=== PATIENT | female | born 1950 | race Caucasian/White ===

== ENCOUNTER 2019-02-02 14:24 | Inpatient (IN) ==
[2019-02-02 15:30] LABS: Basophils % 0.2 %; Eosinophils % 0.1 %; Hematocrit 44.6 % (35.3-44.9); Hemoglobin 14.3 g/dL (11.5-15.4); Immature Granulocytes % 0.5 % (0-4); Lymphocytes # 1.8 K/mcL (0.6-4.6); Lymphocytes % 13.4 %; Mean Corpuscular HGB Conc 32.1 g/dL (31.6-35.5); Mean Corpuscular Hemoglobin 27.6 pg (28.0-33.3); Mean Corpuscular Volume 86.1 fL (83.0-100.0); Mean Platelet Volume 10.7 fL (9.4-12.4); Monocytes # 0.7 K/mcL (0.0-1.3); Monocytes % 5.5 %; Neutrophils # 10.8 K/mcL (1.6-8.9); Platelet Count 339 K/mcL (140-400); Red Blood Count 5.18 M/mcL (3.82-4.97); Red Cell Distribution Width 13.9 % (11.5-14.5); Segmented Neutrophils % 80.3 %; White Blood Count 13.4 K/mcL (4.3-11.1)
[2019-02-02] MEDS ORDERED: 0.9 % Sodium Chloride 500 ML IVC ONE (15:43)
[2019-02-02] MEDS ORDERED: 0.9 % Sodium Chloride 500 ML IVC SCH (15:45)
[2019-02-02 15:52] LABS: BUN/Creatinine Ratio 14 (6-26); Blood Urea Nitrogen 12 mg/dL (8-23); Calcium 9.6 mg/dL (8.6-10.3); Carbon Dioxide 24 mEq/L (23-29); Chloride 102 mEq/L (98-107); Glucose 135 mg/dL (70-105); Osmolality,Calculated 282 (280-300); Potassium 3.5 mEq/L (3.5-5.1); Sodium 135 mEq/L (136-145); eGFR For African Americans > 60 (> 60); eGFR For Non-African Americans > 60 (> 60)
[2019-02-02 15:53] LABS: Troponin I < 0.03 ng/mL (< 0.04)
[2019-02-02] MEDS ORDERED: Naloxone 0.4 MG/ML INJ IVP PRN (16:37)
[2019-02-02] MEDS ORDERED: Ondansetron ODT 4 MG TAB.RAPDIS SL PRN (16:37)
[2019-02-02] MEDS ORDERED: Ondansetron 4 MG/2 ML VIAL IVP PRN (16:37)
[2019-02-02] MEDS ORDERED: Gadolinium Contrast Agent (WT Based) IV PRN (17:18)
[2019-02-02] MEDS ORDERED: Isovue-370 500 ML BOTTLE IVP ONE ×2 (17:25)
[2019-02-02] MEDS ORDERED: 0.9 % Sodium Chloride 1,000 ML IVC ONE (17:44)
[2019-02-02] MEDS ORDERED: Ringers Solution, Lactated 1,000 ML IVC SCH (18:00)
[2019-02-02 19:14] LABS: Thyroid Stimulating Hormone 1.28 mcIU/mL (0.340-5.600)
[2019-02-02 19:16] LABS: Triiodothyronine (T3) Free 2.33 pg/mL (2.50-3.90)
[2019-02-02] MEDS: Budesonide/Formoterol 160/4.5 1 PUFF INH IH SCH (21:58)
[2019-02-03 04:30] LABS: Basophils # 0.1 K/mcL (0.0-0.2); Basophils % 0.6 %; Eosinophils # 0.1 K/mcL (0.0-0.6); Eosinophils % 1.1 %; Hematocrit 39.6 % (35.3-44.9); Immature Granulocytes % 0.6 % (0-4); Lymphocytes # 2.9 K/mcL (0.6-4.6); Lymphocytes % 25.4 %; Mean Corpuscular HGB Conc 31.1 g/dL (31.6-35.5); Mean Corpuscular Hemoglobin 27.3 pg (28.0-33.3); Mean Platelet Volume 10.7 fL (9.4-12.4); Monocytes # 0.8 K/mcL (0.0-1.3); Monocytes % 7.4 %; Neutrophils # 7.4 K/mcL (1.6-8.9); Platelet Count 241 K/mcL (140-400); Red Cell Distribution Width 14.1 % (11.5-14.5); Segmented Neutrophils % 64.9 %; White Blood Count 11.4 K/mcL (4.3-11.1)
[2019-02-03 04:32] LABS: Hemoglobin 12.3 g/dL (11.5-15.4)
[2019-02-03 04:50] LABS: Alanine Aminotransferase 52 Units/L (7-52); Albumin 3.4 g/dL (3.5-5.7); Albumin/Globulin Ratio 1.4 (1.1-2.2); Alkaline Phosphatase 179 Units/L (34-104); Aspartate Amino Transferase 92 Units/L (13-39); BUN/Creatinine Ratio 13 (6-26); Bilirubin,Total 0.3 mg/dL (0.3-1.0); Blood Urea Nitrogen 11 mg/dL (8-23); Calcium 8.9 mg/dL (8.6-10.3); Carbon Dioxide 27 mEq/L (23-29); Chloride 103 mEq/L (98-107); Globulin 2.4 g/dL (2.4-3.5); Glucose 108 mg/dL (70-105); Magnesium 2.1 mg/dL (1.6-2.6); Osmolality,Calculated 290 (280-300); Phosphorous 2.6 mg/dL (2.7-4.5); Potassium 3.1 mEq/L (3.5-5.1); Sodium 140 mEq/L (136-145); Total Protein 5.8 g/dL (6.4-8.9); eGFR For African Americans > 60 (> 60); eGFR For Non-African Americans > 60 (> 60)
[2019-02-03] MEDS: Budesonide/Formoterol 160/4.5 1 PUFF INH IH SCH ×2 (07:33→19:32)
[2019-02-03] MEDS: Tiotropium 18 MCG inhalation IH SCH (07:36)
[2019-02-03] MEDS ORDERED: NON-FORMULARY MEDICATION 1 EACH EACH (Umeclidinium Bromide [Incruse Ellipta] 62.5 MCG) IH SCH (09:00)
[2019-02-03 09:11] LABS: INR 1.1; Prothrombin Time 12.9 Seconds (9.4-12.1)
[2019-02-03] MEDS ORDERED: *HR* LORazepam 2 MG/ML VIAL IVP ONE (09:52)
[2019-02-03] MEDS ORDERED: diazePAM 10 MG/2 ML SYRINGE IVP ONE (10:14)
[2019-02-03] MEDS: Metoprolol XL (24 HR) Succ 25 MG TAB.ER.24H PO SCH (10:28)
[2019-02-03] MEDS: *HR* Heparin 5,000 UNIT/ML VIAL SQ SCH ×2 (14:20→20:56)
[2019-02-03 17:08] LABS: Activated Partial Thrombo Time 27.9 Seconds (26.0-36.0)
[2019-02-04 05:03] LABS: Basophils # 0.1 K/mcL (0.0-0.2); Basophils % 0.8 %; Eosinophils # 0.2 K/mcL (0.0-0.6); Eosinophils % 1.8 %; Hematocrit 39.7 % (35.3-44.9); Hemoglobin 12.4 g/dL (11.5-15.4); Immature Granulocytes % 0.8 % (0-4); Lymphocytes # 2.1 K/mcL (0.6-4.6); Lymphocytes % 25.1 %; Mean Corpuscular HGB Conc 31.2 g/dL (31.6-35.5); Mean Corpuscular Hemoglobin 27.6 pg (28.0-33.3); Mean Corpuscular Volume 88.2 fL (83.0-100.0); Mean Platelet Volume 10.8 fL (9.4-12.4); Monocytes # 0.5 K/mcL (0.0-1.3); Monocytes % 6.2 %; Neutrophils # 5.5 K/mcL (1.6-8.9); Platelet Count 218 K/mcL (140-400); Red Cell Distribution Width 14.2 % (11.5-14.5); Segmented Neutrophils % 65.3 %; White Blood Count 8.4 K/mcL (4.3-11.1)
[2019-02-04 05:10] LABS: INR 1.1
[2019-02-04] MEDS ORDERED: *HR* Metoprolol 5 MG/5 ML VIAL IVP ONE (05:19)
[2019-02-04 05:20] LABS: BUN/Creatinine Ratio 11 (6-26); Blood Urea Nitrogen 7 mg/dL (8-23); Calcium 9.1 mg/dL (8.6-10.3); Carbon Dioxide 26 mEq/L (23-29); Chloride 103 mEq/L (98-107); Glucose 103 mg/dL (70-105); Osmolality,Calculated 288 (280-300); Potassium 3.8 mEq/L (3.5-5.1); Sodium 140 mEq/L (136-145); eGFR For African Americans > 60 (> 60); eGFR For Non-African Americans > 60 (> 60)
[2019-02-04] MEDS: *HR* Heparin 5,000 UNIT/ML VIAL SQ SCH ×3 (05:58→20:57)
[2019-02-04] MEDS ORDERED: *HR* FentaNYL (PF) 100 MCG/2 ML VIAL ONE (07:03)
[2019-02-04] MEDS ORDERED: *HR* Propofol 200 MG/20 ML VIAL IVP ONE (07:04)
[2019-02-04] MEDS ORDERED: Lidocaine -MPF 2% 2 ML VIAL ONE ×2 (07:04→07:08)
[2019-02-04] MEDS ORDERED: Ondansetron 4 MG/2 ML VIAL ONE (07:04)
[2019-02-04] MEDS ORDERED: Dexamethasone 4 MG/ML VIAL ONE ×2 (07:04→07:10)
[2019-02-04] MEDS ORDERED: *HR* Succinylcholine 200 MG/10 ML VIAL IVP ONE (07:04)
[2019-02-04] MEDS ORDERED: *HR* Midazolam HCl 2 MG/2 ML VIAL ONE (07:04)
[2019-02-04] MEDS ORDERED: *HR* Rocuronium Bromide 50 MG/5 ML VIAL ONE (07:04)
[2019-02-04] MEDS ORDERED: Lidocaine -MPF 4% 5 ML AMPUL ONE (07:05)
[2019-02-04] MEDS: Budesonide/Formoterol 160/4.5 1 PUFF INH IH SCH ×2 (07:43→19:48)
[2019-02-04] MEDS: Tiotropium 18 MCG inhalation IH SCH (07:43)
[2019-02-04] MEDS: Metoprolol XL (24 HR) Succ 25 MG TAB.ER.24H PO SCH (08:00)
[2019-02-04] MEDS ORDERED: *HR* PHENYLEPHRINE 1,000 MCG/10 ML SYRINGE IVP ONE ×2 (08:51→09:53)
[2019-02-04] MEDS ORDERED: Ipratropium/Albuterol Neb 3 ML IH ONE (11:02)
[2019-02-04] MEDS: Albuterol 2.5 MG/3 ML NEBULIZER IH SCH ×3 (13:54→16:01)
[2019-02-04 14:17] LABS: Appearance of Body Fluid Cloudy (Clear); Volume of Body Fluid 10 mL
[2019-02-04 16:48] LABS: Alanine Aminotransferase 110 Units/L (7-52); Albumin 3.5 g/dL (3.5-5.7); Albumin/Globulin Ratio 1.5 (1.1-2.2); Alkaline Phosphatase 200 Units/L (34-104); Aspartate Amino Transferase 204 Units/L (13-39); Bilirubin,Direct 0.1 mg/dL (0.0-0.2); Bilirubin,Indirect 0.3 mg/dL (0.0-1.2); Bilirubin,Total 0.4 mg/dL (0.3-1.0); Globulin 2.4 g/dL (2.4-3.5); Phosphorous 2.9 mg/dL (2.7-4.5); Total Protein 5.9 g/dL (6.4-8.9); Uric Acid 4.5 mg/dL (2.3-7.6)
[2019-02-04] MEDS: Dexamethasone 4 MG/ML VIAL IVP SCH (17:14)
[2019-02-04] MEDS: Albuterol 2.5 MG/3 ML NEBULIZER AER SCH ×2 (19:48→23:32)
[2019-02-05] MEDS: Dexamethasone 4 MG/ML VIAL IVP SCH ×4 (00:08→18:02)
[2019-02-05 02:07] LABS: Basophils % 0.2 %; Hematocrit 38.8 % (35.3-44.9); Immature Granulocytes % 0.8 % (0-4); Lymphocytes # 1.3 K/mcL (0.6-4.6); Lymphocytes % 12.9 %; Mean Corpuscular HGB Conc 30.9 g/dL (31.6-35.5); Mean Corpuscular Hemoglobin 27.8 pg (28.0-33.3); Mean Corpuscular Volume 89.8 fL (83.0-100.0); Mean Platelet Volume 10.9 fL (9.4-12.4); Monocytes # 0.5 K/mcL (0.0-1.3); Monocytes % 4.9 %; Neutrophils # 8.3 K/mcL (1.6-8.9); Platelet Count 232 K/mcL (140-400); Red Blood Count 4.32 M/mcL (3.82-4.97); Red Cell Distribution Width 14.3 % (11.5-14.5); Segmented Neutrophils % 81.2 %; White Blood Count 10.2 K/mcL (4.3-11.1)
[2019-02-05 02:12] LABS: INR 1.2; Prothrombin Time 13.2 Seconds (9.4-12.1)
[2019-02-05 02:25] LABS: Alanine Aminotransferase 108 Units/L (7-52); Albumin 3.4 g/dL (3.5-5.7); Albumin/Globulin Ratio 1.4 (1.1-2.2); Alkaline Phosphatase 197 Units/L (34-104); Aspartate Amino Transferase 144 Units/L (13-39); BUN/Creatinine Ratio 11 (6-26); Bilirubin,Total 0.4 mg/dL (0.3-1.0); Blood Urea Nitrogen 7 mg/dL (8-23); Calcium 9.2 mg/dL (8.6-10.3); Carbon Dioxide 25 mEq/L (23-29); Chloride 103 mEq/L (98-107); Globulin 2.5 g/dL (2.4-3.5); Glucose 123 mg/dL (70-105); Magnesium 1.9 mg/dL (1.6-2.6); Osmolality,Calculated 287 (280-300); Phosphorous 2.8 mg/dL (2.7-4.5); Potassium 3.7 mEq/L (3.5-5.1); Sodium 139 mEq/L (136-145); Total Protein 5.9 g/dL (6.4-8.9); Uric Acid 4.3 mg/dL (2.3-7.6); eGFR For African Americans > 60 (> 60); eGFR For Non-African Americans > 60 (> 60)
[2019-02-05] MEDS: Albuterol 2.5 MG/3 ML NEBULIZER AER SCH ×2 (03:32→07:41)
[2019-02-05] MEDS: *HR* Heparin 5,000 UNIT/ML VIAL SQ SCH ×3 (06:05→21:27)
[2019-02-05] MEDS: Budesonide/Formoterol 160/4.5 1 PUFF INH IH SCH ×2 (07:41→19:42)
[2019-02-05] MEDS: Tiotropium 18 MCG inhalation IH SCH (07:44)
[2019-02-05] MEDS: Metoprolol XL (24 HR) Succ 25 MG TAB.ER.24H PO SCH (08:26)
[2019-02-05] MEDS ORDERED: Pantoprazole 40 MG VIAL IVP SCH (09:00)
[2019-02-05] MEDS ORDERED: *HR* Metoprolol 5 MG/5 ML VIAL IVP ONE (09:05)
[2019-02-05] MEDS ORDERED: *HR* LORazepam 0.5 MG TABLET PO PRN (09:05)
[2019-02-05] MEDS ORDERED: Albuterol 2.5 MG/3 ML NEBULIZER IH PRN (09:41)
[2019-02-06] MEDS: Dexamethasone 4 MG/ML VIAL IVP SCH ×2 (06:13→18:33)
[2019-02-06] MEDS: *HR* Heparin 5,000 UNIT/ML VIAL SQ SCH ×3 (06:14→21:51)
[2019-02-06 06:42] LABS: Basophils % 0.2 %; Eosinophils % 0.1 %; Hematocrit 42.7 % (35.3-44.9); Hemoglobin 13.3 g/dL (11.5-15.4); Immature Granulocytes % 0.9 % (0-4); Lymphocytes # 3.5 K/mcL (0.6-4.6); Lymphocytes % 21.8 %; Mean Corpuscular HGB Conc 31.1 g/dL (31.6-35.5); Mean Corpuscular Hemoglobin 27.9 pg (28.0-33.3); Mean Corpuscular Volume 89.7 fL (83.0-100.0); Mean Platelet Volume 10.9 fL (9.4-12.4); Monocytes # 0.9 K/mcL (0.0-1.3); Monocytes % 5.8 %; Neutrophils # 11.3 K/mcL (1.6-8.9); Platelet Count 290 K/mcL (140-400); Red Blood Count 4.76 M/mcL (3.82-4.97); Red Cell Distribution Width 14.6 % (11.5-14.5); Segmented Neutrophils % 71.2 %; White Blood Count 15.9 K/mcL (4.3-11.1)
[2019-02-06 06:53] LABS: INR 1.2; Prothrombin Time 13.1 Seconds (9.4-12.1)
[2019-02-06 07:30] LABS: Alanine Aminotransferase 112 Units/L (7-52); Albumin 3.7 g/dL (3.5-5.7); Albumin/Globulin Ratio 1.4 (1.1-2.2); Alkaline Phosphatase 224 Units/L (34-104); Aspartate Amino Transferase 125 Units/L (13-39); BUN/Creatinine Ratio 15 (6-26); Bilirubin,Total 0.5 mg/dL (0.3-1.0); Blood Urea Nitrogen 10 mg/dL (8-23); Calcium 9.5 mg/dL (8.6-10.3); Carbon Dioxide 28 mEq/L (23-29); Chloride 100 mEq/L (98-107); Globulin 2.6 g/dL (2.4-3.5); Glucose 105 mg/dL (70-105); Magnesium 2.1 mg/dL (1.6-2.6); Osmolality,Calculated 287 (280-300); Phosphorous 2.3 mg/dL (2.7-4.5); Sodium 139 mEq/L (136-145); Total Protein 6.3 g/dL (6.4-8.9); Uric Acid 4.3 mg/dL (2.3-7.6); eGFR For African Americans > 60 (> 60); eGFR For Non-African Americans > 60 (> 60)
[2019-02-06] MEDS: Budesonide/Formoterol 160/4.5 1 PUFF INH IH SCH ×2 (07:30→20:05)
[2019-02-06] MEDS: Tiotropium 18 MCG inhalation IH SCH (07:32)
[2019-02-06] MEDS: Metoprolol XL (24 HR) Succ 25 MG TAB.ER.24H PO SCH (09:50)
[2019-02-06] MEDS: levoFLOXacin 750 MG/150 ML 750 MG/150 ML BAG IVPB SCH (14:30)
[2019-02-07] MEDS: *HR* Heparin 5,000 UNIT/ML VIAL SQ SCH ×3 (05:28→22:53)
[2019-02-07 05:32] LABS: Basophils % 0.3 %; Eosinophils % 0.1 %; Hematocrit 40.5 % (35.3-44.9); Hemoglobin 12.5 g/dL (11.5-15.4); Immature Granulocytes % 1.1 % (0-4); Lymphocytes # 2.6 K/mcL (0.6-4.6); Lymphocytes % 19.7 %; Mean Corpuscular HGB Conc 30.9 g/dL (31.6-35.5); Mean Corpuscular Hemoglobin 27.8 pg (28.0-33.3); Mean Corpuscular Volume 90.2 fL (83.0-100.0); Mean Platelet Volume 10.4 fL (9.4-12.4); Monocytes % 7.6 %; Neutrophils # 9.3 K/mcL (1.6-8.9); Platelet Count 236 K/mcL (140-400); Red Blood Count 4.49 M/mcL (3.82-4.97); Red Cell Distribution Width 14.8 % (11.5-14.5); Segmented Neutrophils % 71.2 %; White Blood Count 13.1 K/mcL (4.3-11.1)
[2019-02-07 05:45] LABS: INR 1.2; Prothrombin Time 13.3 Seconds (9.4-12.1)
[2019-02-07 05:59] LABS: Alanine Aminotransferase 101 Units/L (7-52); Albumin 3.5 g/dL (3.5-5.7); Albumin/Globulin Ratio 1.5 (1.1-2.2); Alkaline Phosphatase 210 Units/L (34-104); Aspartate Amino Transferase 104 Units/L (13-39); BUN/Creatinine Ratio 17 (6-26); Bilirubin,Total 0.5 mg/dL (0.3-1.0); Blood Urea Nitrogen 12 mg/dL (8-23); Calcium 9.2 mg/dL (8.6-10.3); Carbon Dioxide 29 mEq/L (23-29); Chloride 101 mEq/L (98-107); Globulin 2.4 g/dL (2.4-3.5); Glucose 107 mg/dL (70-105); Magnesium 2.2 mg/dL (1.6-2.6); Osmolality,Calculated 288 (280-300); Phosphorous 3.1 mg/dL (2.7-4.5); Potassium 4.4 mEq/L (3.5-5.1); Sodium 139 mEq/L (136-145); Total Protein 5.9 g/dL (6.4-8.9); Uric Acid 4.2 mg/dL (2.3-7.6); eGFR For African Americans > 60 (> 60); eGFR For Non-African Americans > 60 (> 60)
[2019-02-07] MEDS: Budesonide/Formoterol 160/4.5 1 PUFF INH IH SCH ×2 (07:52→22:18)
[2019-02-07] MEDS: Tiotropium 18 MCG inhalation IH SCH (07:55)
[2019-02-07] MEDS: Metoprolol XL (24 HR) Succ 25 MG TAB.ER.24H PO SCH (08:10)
[2019-02-07] MEDS: Dexamethasone 4 MG/ML VIAL IVP SCH (08:10)
[2019-02-07] MEDS: levoFLOXacin 750 MG/150 ML 750 MG/150 ML BAG IVPB SCH (08:11)
[2019-02-07] MEDS: Levalbuterol Neb 0.63 MG/3 ML IH SCH ×2 (15:35→22:19)
[2019-02-07] MEDS ORDERED: GuaiFENesin Liq 200 MG/10 ML UDC PO PRN (21:07)
[2019-02-08] MEDS ORDERED: *HR* LORazepam 2 MG/ML VIAL IVP PRN
[2019-02-08] MEDS ORDERED: Dexamethasone 10 MG/ML VIAL IVP PRN ×2
[2019-02-08] MEDS ORDERED: CARBOPLATIN IV SCH
[2019-02-08] MEDS ORDERED: SODIUM CHLORIDE 0.9% IV SCH ×2
[2019-02-08] MEDS ORDERED: EPINEPHrine 1 MG/ML VIAL SQ PRN
[2019-02-08] MEDS ORDERED: ETOPOSIDE IV SCH
[2019-02-08] MEDS ORDERED: 0.9 % Sodium Chloride 500 ML IVC SCH ×2
[2019-02-08] MEDS ORDERED: Dexamethasone 10 MG/ML VIAL IVP ONE
[2019-02-08] MEDS ORDERED: Famotidine 20 MG/2 ML VIAL IVP PRN
[2019-02-08] MEDS ORDERED: Hydrocortisone Sodium Succ 100 MG/2 ML VIAL IVP PRN
[2019-02-08] MEDS ORDERED: Fosaprepitant Dimeglumine 150 MG in 0.9 % Sodium Chloride 250 ML IVPB SCH
[2019-02-08] MEDS ORDERED: Prochlorperazine 10 MG/2 ML VIAL IVP PRN
[2019-02-08] MEDS ORDERED: Atezolizumab 1,200 MG in 0.9 % Sodium Chloride 250 ML IV SCH
[2019-02-08] MEDS: Levalbuterol Neb 0.63 MG/3 ML IH SCH ×4 (03:49→21:50)
[2019-02-08] MEDS: *HR* Heparin 5,000 UNIT/ML VIAL SQ SCH ×3 (05:31→23:06)
[2019-02-08 06:00] LABS: Basophils % 0.3 %; Eosinophils # 0.2 K/mcL (0.0-0.6); Eosinophils % 1.6 %; Hemoglobin 12.5 g/dL (11.5-15.4); Immature Granulocytes % 1.2 % (0-4); Lymphocytes # 3.1 K/mcL (0.6-4.6); Lymphocytes % 25.7 %; Mean Corpuscular HGB Conc 30.5 g/dL (31.6-35.5); Mean Corpuscular Hemoglobin 27.3 pg (28.0-33.3); Mean Corpuscular Volume 89.5 fL (83.0-100.0); Mean Platelet Volume 10.7 fL (9.4-12.4); Monocytes # 0.7 K/mcL (0.0-1.3); Monocytes % 5.8 %; Neutrophils # 7.9 K/mcL (1.6-8.9); Platelet Count 209 K/mcL (140-400); Red Blood Count 4.58 M/mcL (3.82-4.97); Red Cell Distribution Width 14.9 % (11.5-14.5); Segmented Neutrophils % 65.4 %; White Blood Count 12.1 K/mcL (4.3-11.1)
[2019-02-08 06:15] LABS: Prothrombin Time 11.8 Seconds (9.4-12.1)
[2019-02-08 06:20] LABS: Alanine Aminotransferase 104 Units/L (7-52); Albumin 3.5 g/dL (3.5-5.7); Albumin/Globulin Ratio 1.5 (1.1-2.2); Alkaline Phosphatase 222 Units/L (34-104); Aspartate Amino Transferase 125 Units/L (13-39); BUN/Creatinine Ratio 19 (6-26); Bilirubin,Total 0.5 mg/dL (0.3-1.0); Blood Urea Nitrogen 13 mg/dL (8-23); Calcium 9.2 mg/dL (8.6-10.3); Carbon Dioxide 28 mEq/L (23-29); Chloride 102 mEq/L (98-107); Globulin 2.4 g/dL (2.4-3.5); Glucose 100 mg/dL (70-105); Magnesium 2.2 mg/dL (1.6-2.6); Osmolality,Calculated 290 (280-300); Phosphorous 3.4 mg/dL (2.7-4.5); Potassium 3.7 mEq/L (3.5-5.1); Sodium 140 mEq/L (136-145); Total Protein 5.9 g/dL (6.4-8.9); Uric Acid 4.4 mg/dL (2.3-7.6); eGFR For African Americans > 60 (> 60); eGFR For Non-African Americans > 60 (> 60)
[2019-02-08] MEDS: Dexamethasone 4 MG/ML VIAL IVP SCH (08:09)
[2019-02-08] MEDS: levoFLOXacin 750 MG/150 ML 750 MG/150 ML BAG IVPB SCH (08:10)
[2019-02-08] MEDS: Lisinopril 20 MG TABLET PO SCH (08:10)
[2019-02-08] MEDS: Metoprolol XL (24 HR) Succ 50 MG TAB.ER.24H PO SCH (08:10)
[2019-02-08] MEDS: Budesonide/Formoterol 160/4.5 1 PUFF INH IH SCH ×2 (11:29→21:50)
[2019-02-08] MEDS: Tiotropium 18 MCG inhalation IH SCH (11:33)
[2019-02-08] MEDS ORDERED: Tiotropium 18 MCG inhalation IH SCH ×2 (12:15→12:30)
[2019-02-08 17:49] LABS: Basophils % 0.3 %; Hematocrit 39.4 % (35.3-44.9); Hemoglobin 12.2 g/dL (11.5-15.4); Immature Granulocytes % 1.9 % (0-4); Lymphocytes # 0.9 K/mcL (0.6-4.6); Lymphocytes % 7.9 %; Mean Corpuscular Hemoglobin 27.9 pg (28.0-33.3); Mean Platelet Volume 10.9 fL (9.4-12.4); Monocytes # 0.3 K/mcL (0.0-1.3); Monocytes % 2.3 %; Neutrophils # 9.4 K/mcL (1.6-8.9); Platelet Count 205 K/mcL (140-400); Red Blood Count 4.38 M/mcL (3.82-4.97); Segmented Neutrophils % 87.6 %; White Blood Count 10.7 K/mcL (4.3-11.1)
[2019-02-08 18:04] LABS: INR 1.1
[2019-02-08 18:08] LABS: Alanine Aminotransferase 126 Units/L (7-52); Albumin 3.4 g/dL (3.5-5.7); Albumin/Globulin Ratio 1.3 (1.1-2.2); Alkaline Phosphatase 234 Units/L (34-104); Aspartate Amino Transferase 162 Units/L (13-39); BUN/Creatinine Ratio 19 (6-26); Bilirubin,Total 0.5 mg/dL (0.3-1.0); Blood Urea Nitrogen 13 mg/dL (8-23); Calcium 8.9 mg/dL (8.6-10.3); Carbon Dioxide 25 mEq/L (23-29); Chloride 104 mEq/L (98-107); Globulin 2.6 g/dL (2.4-3.5); Glucose 141 mg/dL (70-105); Osmolality,Calculated 288 (280-300); Phosphorous 3.1 mg/dL (2.7-4.5); Potassium 3.8 mEq/L (3.5-5.1); Sodium 138 mEq/L (136-145); Uric Acid 3.9 mg/dL (2.3-7.6); eGFR For African Americans > 60 (> 60); eGFR For Non-African Americans > 60 (> 60)
[2019-02-09] MEDS ORDERED: Dexamethasone 10 MG/ML VIAL IVP PRN
[2019-02-09] MEDS ORDERED: Dexamethasone 10 MG/ML VIAL IVP ONE
[2019-02-09] MEDS ORDERED: 0.9 % Sodium Chloride 500 ML IVC SCH
[2019-02-09] MEDS ORDERED: Famotidine 20 MG/2 ML VIAL IVP PRN
[2019-02-09] MEDS ORDERED: *HR* LORazepam 2 MG/ML VIAL IVP PRN
[2019-02-09] MEDS ORDERED: SODIUM CHLORIDE 0.9% IV SCH
[2019-02-09] MEDS ORDERED: Prochlorperazine 10 MG/2 ML VIAL IVP PRN
[2019-02-09] MEDS ORDERED: ETOPOSIDE IV SCH
[2019-02-09] MEDS: Levalbuterol Neb 0.63 MG/3 ML IH SCH ×4 (04:10→22:12)
[2019-02-09 04:58] LABS: Basophils % 0.1 %; Hematocrit 37.3 % (35.3-44.9); Hemoglobin 11.4 g/dL (11.5-15.4); Lymphocytes # 1.5 K/mcL (0.6-4.6); Lymphocytes % 10.7 %; Mean Corpuscular HGB Conc 30.6 g/dL (31.6-35.5); Mean Corpuscular Hemoglobin 27.2 pg (28.0-33.3); Mean Platelet Volume 11.1 fL (9.4-12.4); Monocytes # 0.9 K/mcL (0.0-1.3); Monocytes % 6.5 %; Neutrophils # 11.5 K/mcL (1.6-8.9); Platelet Count 184 K/mcL (140-400); Red Blood Count 4.19 M/mcL (3.82-4.97); Red Cell Distribution Width 14.8 % (11.5-14.5); Segmented Neutrophils % 81.7 %; White Blood Count 14.1 K/mcL (4.3-11.1)
[2019-02-09 05:10] LABS: Prothrombin Time 11.8 Seconds (9.4-12.1)
[2019-02-09 05:18] LABS: Alanine Aminotransferase 117 Units/L (7-52); Albumin 3.4 g/dL (3.5-5.7); Albumin/Globulin Ratio 1.5 (1.1-2.2); Alkaline Phosphatase 210 Units/L (34-104); Aspartate Amino Transferase 118 Units/L (13-39); BUN/Creatinine Ratio 22 (6-26); Bilirubin,Total 0.5 mg/dL (0.3-1.0); Blood Urea Nitrogen 14 mg/dL (8-23); Carbon Dioxide 26 mEq/L (23-29); Chloride 104 mEq/L (98-107); Globulin 2.2 g/dL (2.4-3.5); Glucose 107 mg/dL (70-105); Magnesium 2.2 mg/dL (1.6-2.6); Osmolality,Calculated 289 (280-300); Phosphorous 3.7 mg/dL (2.7-4.5); Sodium 139 mEq/L (136-145); Total Protein 5.6 g/dL (6.4-8.9); Uric Acid 4.5 mg/dL (2.3-7.6); eGFR For African Americans > 60 (> 60); eGFR For Non-African Americans > 60 (> 60)
[2019-02-09] MEDS: *HR* Heparin 5,000 UNIT/ML VIAL SQ SCH ×3 (05:43→22:13)
[2019-02-09] MEDS ORDERED: *HR* Metoprolol 5 MG/5 ML VIAL IVP ONE (06:01)
[2019-02-09] MEDS: levoFLOXacin 750 MG/150 ML 750 MG/150 ML BAG IVPB SCH (09:13)
[2019-02-09] MEDS: Dexamethasone 4 MG/ML VIAL IVP SCH (09:15)
[2019-02-09] MEDS: Lisinopril 20 MG TABLET PO SCH (09:15)
[2019-02-09] MEDS: Metoprolol XL (24 HR) Succ 50 MG TAB.ER.24H PO SCH (09:15)
[2019-02-09] MEDS: Budesonide/Formoterol 160/4.5 1 PUFF INH IH SCH ×2 (09:50→22:12)
[2019-02-09] MEDS: Magic Mouthwash 10 ML UD Cup PO SCH (17:03)
[2019-02-09 17:53] LABS: Basophils % 0.1 %; Eosinophils % 0.1 %; Hemoglobin 11.8 g/dL (11.5-15.4); Immature Granulocytes % 0.9 % (0-4); Lymphocytes # 0.7 K/mcL (0.6-4.6); Lymphocytes % 5.5 %; Mean Corpuscular HGB Conc 30.3 g/dL (31.6-35.5); Mean Corpuscular Hemoglobin 27.4 pg (28.0-33.3); Mean Corpuscular Volume 90.5 fL (83.0-100.0); Monocytes # 0.3 K/mcL (0.0-1.3); Monocytes % 2.3 %; Neutrophils # 10.9 K/mcL (1.6-8.9); Platelet Count 217 K/mcL (140-400); Red Blood Count 4.31 M/mcL (3.82-4.97); Segmented Neutrophils % 91.1 %; White Blood Count 11.9 K/mcL (4.3-11.1)
[2019-02-09 18:00] LABS: Prothrombin Time 11.9 Seconds (9.4-12.1)
[2019-02-09 18:02] LABS: Alanine Aminotransferase 137 Units/L (7-52); Albumin 3.4 g/dL (3.5-5.7); Albumin/Globulin Ratio 1.4 (1.1-2.2); Alkaline Phosphatase 238 Units/L (34-104); Aspartate Amino Transferase 149 Units/L (13-39); BUN/Creatinine Ratio 23 (6-26); Bilirubin,Total 0.5 mg/dL (0.3-1.0); Blood Urea Nitrogen 19 mg/dL (8-23); Carbon Dioxide 24 mEq/L (23-29); Chloride 105 mEq/L (98-107); Globulin 2.4 g/dL (2.4-3.5); Glucose 138 mg/dL (70-105); Osmolality,Calculated 286 (280-300); Phosphorous 3.4 mg/dL (2.7-4.5); Potassium 4.1 mEq/L (3.5-5.1); Sodium 136 mEq/L (136-145); Total Protein 5.8 g/dL (6.4-8.9); Uric Acid 4.8 mg/dL (2.3-7.6); eGFR For African Americans > 60 (> 60); eGFR For Non-African Americans > 60 (> 60)
[2019-02-10] MEDS ORDERED: Dexamethasone 10 MG/ML VIAL IVP ONE
[2019-02-10] MEDS ORDERED: SODIUM CHLORIDE 0.9% IV SCH
[2019-02-10] MEDS ORDERED: Famotidine 20 MG/2 ML VIAL IVP PRN
[2019-02-10] MEDS ORDERED: ETOPOSIDE IV SCH
[2019-02-10] MEDS ORDERED: 0.9 % Sodium Chloride 500 ML IVC SCH
[2019-02-10] MEDS ORDERED: Dexamethasone 10 MG/ML VIAL IVP PRN
[2019-02-10] MEDS ORDERED: *HR* LORazepam 2 MG/ML VIAL IVP PRN
[2019-02-10] MEDS ORDERED: Prochlorperazine 10 MG/2 ML VIAL IVP PRN
[2019-02-10] MEDS: Levalbuterol Neb 0.63 MG/3 ML IH SCH ×3 (04:02→16:09)
[2019-02-10] MEDS: *HR* Heparin 5,000 UNIT/ML VIAL SQ SCH ×2 (05:44→13:01)
[2019-02-10 06:09] LABS: Basophils % 0.1 %; Eosinophils % 0.2 %; Hematocrit 37.9 % (35.3-44.9); Hemoglobin 11.6 g/dL (11.5-15.4); Immature Granulocytes % 0.8 % (0-4); Lymphocytes # 1.8 K/mcL (0.6-4.6); Lymphocytes % 14.1 %; Mean Corpuscular HGB Conc 30.6 g/dL (31.6-35.5); Mean Corpuscular Hemoglobin 27.5 pg (28.0-33.3); Mean Corpuscular Volume 89.8 fL (83.0-100.0); Mean Platelet Volume 11.1 fL (9.4-12.4); Monocytes # 0.5 K/mcL (0.0-1.3); Monocytes % 3.9 %; Neutrophils # 10.3 K/mcL (1.6-8.9); Platelet Count 192 K/mcL (140-400); Red Blood Count 4.22 M/mcL (3.82-4.97); Red Cell Distribution Width 15.1 % (11.5-14.5); Segmented Neutrophils % 80.9 %; White Blood Count 12.8 K/mcL (4.3-11.1)
[2019-02-10 06:16] LABS: Prothrombin Time 11.4 Seconds (9.4-12.1)
[2019-02-10 06:25] LABS: Alanine Aminotransferase 129 Units/L (7-52); Albumin 3.4 g/dL (3.5-5.7); Albumin/Globulin Ratio 1.5 (1.1-2.2); Alkaline Phosphatase 215 Units/L (34-104); Aspartate Amino Transferase 126 Units/L (13-39); BUN/Creatinine Ratio 25 (6-26); Bilirubin,Total 0.5 mg/dL (0.3-1.0); Blood Urea Nitrogen 19 mg/dL (8-23); Calcium 9.1 mg/dL (8.6-10.3); Carbon Dioxide 26 mEq/L (23-29); Chloride 103 mEq/L (98-107); Globulin 2.2 g/dL (2.4-3.5); Glucose 97 mg/dL (70-105); Magnesium 2.3 mg/dL (1.6-2.6); Osmolality,Calculated 290 (280-300); Phosphorous 3.6 mg/dL (2.7-4.5); Sodium 139 mEq/L (136-145); Total Protein 5.6 g/dL (6.4-8.9); eGFR For African Americans > 60 (> 60); eGFR For Non-African Americans > 60 (> 60)
[2019-02-10 07:49] VITALS: BP 137/66
[2019-02-10] MEDS: levoFLOXacin 750 MG/150 ML 750 MG/150 ML BAG IVPB SCH (09:56)
[2019-02-10] MEDS: Lisinopril 20 MG TABLET PO SCH (09:57)
[2019-02-10] MEDS: Metoprolol XL (24 HR) Succ 50 MG TAB.ER.24H PO SCH (09:57)
[2019-02-10] MEDS: Magic Mouthwash 10 ML UD Cup PO SCH ×2 (09:57→13:01)
[2019-02-10] MEDS: Dexamethasone 4 MG/ML VIAL IVP SCH (09:57)
[2019-02-10] MEDS: Budesonide/Formoterol 160/4.5 1 PUFF INH IH SCH (10:49)
[2019-02-10] MEDS ORDERED: 0.9 % Sodium Chloride 500 ML ONE (13:22)
[2019-03-01] MEDS ORDERED: 0.9 % Sodium Chloride 500 ML IVC SCH ×2
[2019-03-01] MEDS ORDERED: ETOPOSIDE IV SCH
[2019-03-01] MEDS ORDERED: EPINEPHrine 1 MG/ML VIAL SQ PRN
[2019-03-01] MEDS ORDERED: Atezolizumab 1,200 MG in 0.9 % Sodium Chloride 250 ML IV SCH
[2019-03-01] MEDS ORDERED: SODIUM CHLORIDE 0.9% IV SCH ×2
[2019-03-01] MEDS ORDERED: Fosaprepitant Dimeglumine 150 MG in 0.9 % Sodium Chloride 250 ML IVPB SCH
[2019-03-01] MEDS ORDERED: Famotidine 20 MG/2 ML VIAL IVP PRN
[2019-03-01] MEDS ORDERED: Dexamethasone 10 MG/ML VIAL IVP ONE
[2019-03-01] MEDS ORDERED: Hydrocortisone Sodium Succ 100 MG/2 ML VIAL IVP PRN
[2019-03-01] MEDS ORDERED: Prochlorperazine 10 MG/2 ML VIAL IVP PRN
[2019-03-01] MEDS ORDERED: CARBOPLATIN IV SCH
[2019-03-01] MEDS ORDERED: *HR* LORazepam 2 MG/ML VIAL IVP PRN
[2019-03-01] MEDS ORDERED: Dexamethasone 10 MG/ML VIAL IVP PRN ×2
[2019-04-13] MEDS ORDERED: Dexamethasone 10 MG/ML VIAL IVP PRN
[2019-04-13] MEDS ORDERED: Prochlorperazine 10 MG/2 ML VIAL IVP PRN
[2019-04-13] MEDS ORDERED: SODIUM CHLORIDE 0.9% IVPB SCH
[2019-04-13] MEDS ORDERED: *HR* LORazepam 2 MG/ML VIAL IVP PRN
[2019-04-13] MEDS ORDERED: Famotidine 20 MG/2 ML VIAL IVP PRN
[2019-04-13] MEDS ORDERED: Dexamethasone 10 MG/ML VIAL IVP ONE
[2019-04-13] MEDS ORDERED: 0.9 % Sodium Chloride 500 ML IVC SCH
[2019-04-13] MEDS ORDERED: ETOPOSIDE IVPB SCH
== END 2019-02-10 16:48 | disposition home or self-care (01) | DRG 167 ==
LOC: SUATTDRO → EMEROOARM 14:24 → 2NENU 14:24 → SUATTDRO 17:01 → 2NENU 17:30
PROVIDERS: ADMIT Internal Medicine; ATTEND Pharmacist
PROC: ENDOLBX (2019-02-04 17:30)